=== PATIENT | male | born 1950 | race Caucasian/White ===

== ENCOUNTER 2021-04-30 09:17 | Day surgery (SDC) | payer MEDICARE, SELFPAY ==
[2021-04-24 15:10] VITALS: BMI 25.1
--- NOTE | 2021-04-27 13:39 | P.CONAN_ITS ---
Documented by User: Eleni Ho NP 04/27/21 13:39 HPI - Anesthesia Eval Consult details Narrative: 70yo M for Colonoscopy [facility] Past Medical History Medical History (Updated 04/24/21 @ 15:05 by Katelyn Phillips RN) BPH (benign prostatic hyperplasia) Surgical History Surgical History (Updated 04/24/21 @ 15:09 by Katelyn Phillips RN) H/O colonoscopy History of bunionectomy Hx of arthroscopic knee surgery Hx of nasal septoplasty Social History Social History Patient Tobacco Use Status: Former Tobacco user Quit Date: >10 years ago Tobacco use type: Cigarette Use of substances other than those prescribed or required for medical reasons: No Advance Directives: No Advance Directives Information Provided: Yes Advance Directives on File: No Meds Allergies Allergy/AdvReac Type Severity Reaction Status Date / Time No Known Allergies Allergy Verified 04/30/21 10:25 Home Medications Medication Instructions Recorded Confirmed Last Taken Type multivitamin 1 tab PO DAILY 04/24/21 04/24/21 Unknown History tamsulosin 0.4 mg capsule 1 cap PO DAILY 04/24/21 04/24/21 Unknown History Exam Exam Date and Time: April 27, 2021 1339 Height,Weight and Vital Signs: Height 5 ft 11 in Weight 81.647 kg Assessment and Plan Assessment Anesthesia Assessment: Chart Reviewed Documented by User: Maite Peralta MD 04/30/21 11:08 [facility] Past Medical History Medical History (Updated 04/24/21 @ 15:05 by Katelyn Phillips RN) BPH (benign prostatic hyperplasia) Family History Family history of problems with anesthesia: No Surgical History Surgical History (Updated 04/24/21 @ 15:09 by Katelyn Phillips RN) H/O colonoscopy History of bunionectomy Hx of arthroscopic knee surgery Hx of nasal septoplasty History of Problems with Anesthesia: No Social History Social History Patient Tobacco Use Status: Former Tobacco user Quit Date: >10 years ago Tobacco use type: Cigarette Use of substances other than those prescribed or required for medical reasons: No Advance Directives: No Advance Directives Information Provided: Yes Advance Directives on File: No Meds Allergies Allergy/AdvReac Type Severity Reaction Status Date / Time No Known Allergies Allergy Verified 04/30/21 10:25 Home Medications Medication Instructions Recorded Confirmed Last Taken Type multivitamin 1 tab PO DAILY 04/24/21 04/24/21 Unknown History tamsulosin 0.4 mg capsule 1 cap PO DAILY 04/24/21 04/24/21 Unknown History Exam Height,Weight and Vital Signs: Height 5 ft 11 in Weight 81.647 kg Vital Signs Temp Pulse Resp BP Pulse Ox 98.3 F 80 18 115/67 97 04/30/21 10:36 04/30/21 10:36 04/30/21 10:36 04/30/21 10:36 04/30/21 10:36 Airway Mallampati Class: II TM Dist: >3cm Neck ROM: Full Heart: RRR Lungs: CTAB Assessment and Plan Assessment Anesthesia Assessment: Anesthesia Plan Discussed Final Anesthetic Review Family History of Problems with Anesthesia: No History of Problems with Anesthesia: No NPO: Yes ASA Class: II Final Preanesthetic Review: No Changes in Pt Med Stat, Meds/Allgs Chart Reviewed, Consent Obtained/Reviewed and Anes Risks/Benef Reviewed Patient Risk: Low Procedure Risk: Low Assessment/Block/Sedation in SS: Assess/Block/Sedation-SS Anesthetic Plan Anesthetic Plan: MAC: Disposition: Standard PACU
[2021-04-30 10:36] VITALS: BP 115/67; PULSE 80; RESP 18; TEMP 36.8; O2SAT 97
[2021-04-30 11:47] VITALS: BP 96/47; PULSE 62; RESP 14; TEMP 36.3; O2SAT 98
--- NOTE | 2021-04-30 11:49 | PM.OP ---
Brief Operative Note Date of Service: 04/30/21 Pre-op diagnosis: Screening Post-op diagnosis: other (Cecal polyp) Procedure: Colonoscopy to cecum with bx/removal of polyp Surgeon: Chad Frye Anesthesia: MAC Was an Electronics Utility Worker used for this Procedure?: No Estimated blood loss (mL): 2.0 Pathology: other (A. Cecal polyp) Condition: stable Disposition: PACU
[2021-04-30 12:02] VITALS: BP 96/50; PULSE 62; RESP 16; O2SAT 96
--- NOTE | 2021-04-30 12:14 | OP_ITS ---
SURGEON: Chad Frye MD INDICATIONS: The patient presents for evaluation of colorectal cancer screening. Full consent was obtained from him for this, including risks of bleeding and perforation. PREOPERATIVE DIAGNOSIS: Colorectal cancer screening. POSTOPERATIVE DIAGNOSIS: PROCEDURE PERFORMED: Colonoscopy to the cecum with biopsy and removal of polyp. ESTIMATED BLOOD LOSS: COMPLICATIONS: ANESTHESIA: Preop medication used, monitored anesthesia care. ASSISTANTS: SPECIMENS: POSTOPERATIVE DIAGNOSES: Colorectal cancer screening, colon polyp, diverticulosis, and internal hemorrhoids. DESCRIPTION OF PROCEDURE: The patient was placed in the left lateral decubitus position. The digital rectal exam revealed no abnormalities. The Olympus video pediatric colonoscope was entered into the rectum and advanced to the cecum. Advancement to the cecum was difficult and required abdominal wall pressure throughout the majority of the procedure. Once in the cecum, I did identify a cecal pouch with appendiceal orifice and a normal-appearing ileocecal valve. There was transillumination of light deep in the right lower quadrant. The entire cecum was well visualized. In the cecum, was an approximately 5 mm flat polyp, which was removed completely in piecemeal fashion with a cold biopsy forceps. The scope was slowly withdrawn assessing all mucosal surfaces carefully. Preparation was excellent. I did not visualize any other polyps, colitis, nor angiodysplasia. There was a mild amount of sigmoid diverticulosis. In the rectum, the scope was retroflexed visualizing internal hemorrhoids, but no other pathology. The rectal mucosa appeared normal. Scope was straightened and withdrawn from the patient. He tolerated the procedure well and was returned to the recovery area in stable condition. IMPRESSION: 1. Cecal polyp, status post biopsy and removal. 2. Diverticulosis. 3. Internal hemorrhoids. PLAN: The results of the pathology will be checked. I would recommend a repeat colonoscopy in 5 years for further screening purposes given his family history and today's finding. MD MAXIMO Yoo/EULOGIO / [id number]
[2021-04-30 12:17] VITALS: BP 101/46; PULSE 58; RESP 16; TEMP 36.3; O2SAT 97
== END 2021-04-30 12:50 | disposition home or self-care (01) ==
PROVIDERS: PCP Internal Medicine; Visit Provider Internal Medicine
PROC: 0DJD8ZZ Inspection of Lower Intestinal Tract, Via Natural or Artificial Opening Endoscopic (ICD-10-PCS; CPT 45378; principal; 2021-04-30 10:20)
DX: Z12.11 Encounter for screening for malignant neoplasm of colon (principal); Z86.010 Personal history of colon polyps; Z83.71 Family history of colonic polyps; D12.0 Benign neoplasm of cecum; K57.30 Diverticulosis of large intestine without perforation or abscess without bleeding; K64.8 Other hemorrhoids; N40.0 Benign prostatic hyperplasia without lower urinary tract symptoms; Z87.891 Personal history of nicotine dependence
CPT/HCPCS: 45380; 88305; J2370; J2405; J2765